=== PATIENT | male | born 1960 ===

== ENCOUNTER → 2021-08-06 09:53 | Outpatient (BNVA) | payer OTHER, SELFPAY | PROVIDERS: PCP Internal Medicine; Visit Provider Psychiatry & Neurology Neurology | DX: R25.2 Cramp and spasm (principal) ==

== ENCOUNTER 2023-06-10 13:14 | Outpatient (AMB) | payer OTHER, SELFPAY ==
--- NOTE | 2023-06-10 13:15 | MHC.OFFVIS ---
Intake Vital Signs 06/10/23 13:23 Height 5 ft 9.5 in Weight 215 lb BMI 31.3 BP 139/67 Blood Pressure Location Rt brachial Position Sitting Pulse 63 Intake Visit Reasons: umbilical Hernia Intake Note: Patient referred by PCP Dr. Kim for 2nd opinion on umbilical hernia. Reports hernia present for yrs. Patient c/o: slightly bigger [facility] [place]/Pelvis: 08-26-22. 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 This has been a longstanding hernia. He was to have surgery at [facility] and discussion was had regarding laparoscopic repair. He does do occasional heavy lifting Patient is otherwise tolerating a diet, having regular bowel habits. Chart was reviewed and patient evaluated [facility] Medical History (Updated 06/10/23 @ 13:21 by SONIA Hicks) Brain aneurysm Dizziness Reactive airway disease Arthritis Hyperlipidemia Aneurysm Surgical History (Updated 06/10/23 @ 14:27 by Curly Aranda MD) No pertinent past surgical history Family History Father Stroke Mother Cancer Social History Household Members: Spouse Alcohol intake: former Year quit: 1987 Patient Tobacco Use Status: Never used Tobacco Substance Use Type: Crack/Cocaine, Former Substance User, Heroin and Marijuana Current occupational status: unemployed Physical Exam Vital Signs: Last Vital Signs Pulse 63 06/10/23 13:23 BP 139/67 06/10/23 13:23 BMI result Body Mass Index 31.3 Chest Other: Chest breath sounds bilaterally, HS 1 in 2 GI Other: Abdomen patient was examined both supine and standing with Valsalva. Bilateral groin exam negative. Genitalia within normal limits. Proximally 3 cm reducible umbilical hernia. Assessment & Plan Assessment & Plan (1) Umbilical hernia: Code(s): K42.9 - Umbilical hernia without obstruction or gangrene Plan I discussed with the patient that his therapeutic options are no surgery to open repair. Because of the small size, patient would be a very good candidate for sedation/MAC anesthesia and local. Risks, benefits, alternatives of procedure of open umbilical hernia repair with mesh would include but not limited to bleeding, infection, recurrence, numbness, pain, scarring. Patient would like to consider his options. Should he wished to proceed with surgery, he will contact the office. All questions answered. Coding Level of Care Code New Pt Level 4 (02806) Diagnoses Umbilical hernia K42.9
[2023-06-10 13:23] VITALS: BP 139/67; PULSE 63; BMI 31.3
== END 2023-06-10 13:40 | disposition home or self-care (01) ==
PROVIDERS: PCP Internal Medicine; Visit Provider Surgery
DX: K42.9 Umbilical hernia without obstruction or gangrene (principal)
CPT/HCPCS: 99204

== ENCOUNTER → 2023-06-10 13:14 | Outpatient (BNVA) | payer OTHER, SELFPAY | PROVIDERS: PCP Internal Medicine; Visit Provider Surgery ==

== ENCOUNTER 2024-01-12 11:29 | Outpatient (AMB) | payer BC, SELFPAY ==
--- NOTE | 2024-01-12 11:52 | A.OFFVIS_ITS ---
Intake Visit Reasons: re-discuss hernia surgery Allergies Penicillins Allergy (Verified 06/10/23 13:20) Swelling HPI Comments Details: Patient was seen by me in May this past year because of symptomatic umbilical hernia. Because of personal issues, he had to delay the surgery. His hernia has now increased in size and become more symptomatic. He would like to have it repaired. Chart was reviewed and patient evaluated [facility] Medical History (Updated 06/10/23 @ 13:21 by SONIA Hicks) Brain aneurysm Dizziness Reactive airway disease Arthritis Hyperlipidemia Aneurysm Surgical History (Updated 06/10/23 @ 14:27 by Curly Aranda MD) No pertinent past surgical history Family History Father Stroke Mother Cancer Social History Household Members: Spouse Alcohol intake: former Year quit: 1987 Patient Tobacco Use Status: Never used Tobacco Substance Use Type: Crack/Cocaine, Former Substance User, Heroin and Marijuana Current occupational status: unemployed Physical Exam Chest Other: Chest breath sounds bilaterally. Regular pulse GI Other: Patient was examined both supine and standing with Valsalva. Abdomen is soft and benign. Bilateral groin exam negative. Patient has a roughly 3 cm incarcerated umbilical hernia Assessment & Plan Assessment & Plan (1) Umbilical hernia: Code(s): K42.9 - Umbilical hernia without obstruction or gangrene Category: Surgical Plan I once again reviewed with the patient the risks, benefits, alternatives of open encourage umbilical hernia repair with mesh which included but not limited to bleeding, infection, recurrence, numbness, pain, scarring, bowel injury and the patient wishes to proceed. All questions answered. Arrangements were made for this. Think the patient would be a good candidate for MAC anesthesia. Coding Level of Care Code Est Pt Level 5 (76564) Diagnoses Umbilical hernia K42.9
== END 2024-01-12 12:05 | disposition home or self-care (01) ==
PROVIDERS: PCP Internal Medicine; Visit Provider Surgery
DX: K42.9 Umbilical hernia without obstruction or gangrene (principal)
CPT/HCPCS: 99214

== ENCOUNTER 2024-03-04 07:32 | Day surgery (SDC) | payer BC, SELFPAY ==
[2024-03-01 13:15] VITALS: BMI 30.8
--- NOTE | 2024-03-03 15:31 | P.HPSUR_ITS ---
Pre-Procedural Eval Section A - 24 Hr Update-Section A only Date of Service: 03/04/24 The patient is an INPATIENT: No Changes since office visit: No Cold of Flu in the past 2 weeks, No New Medical Problems, No Changes in Medication and No Patient answered all questions Section B - Complete if H&P > 30 days Chief Complaint: Umbilical hernia without obstruction or gangrene Allergies: Allergies Allergy/AdvReac Type Severity Reaction Status Date / Time Penicillins Allergy Swelling Verified 06/10/23 13:20 Review of Systems Sugical H&P ROS: Negative: Constitution, Cardiovascular, Respiratory, Neurological, Psychiatric, Hem-Onc, Allergic/Immunologic, Gastrointestinal, Genitourinary, Musculoskeletal, Integumentary, Endocrine and E yes/Ears/Nose/Throat Exam Surgical H&P Exam: Normal: HEENT, Normal: Heart, Normal: Lungs, Normal: Extremities, Normal: Abdomen, Normal: Skin and Normal: Neurological Plan I have reviewed the history and physical and performed a pertinent physical examination on my patient. No changes have occurred unless specified. Time Spent With Patient Time: Total time managing care of this patient today ____ minutes.
[2024-03-04 08:21] VITALS: BP 145/82; PULSE 62; RESP 16; TEMP 36.7; O2SAT 96; BMI 31.2
[2024-03-04] MEDS: Lactated Ringers 1,000 ML 80 ML IVCONT (09:04)
--- NOTE | 2024-03-04 09:05 | P.CONAN_ITS ---
[facility] Active Problems Active Problems: All Active Problems Umbilical hernia (Acute) Cramp in limb (Acute) Reactive airway disease (Acute) Arthritis (Acute) Hyperlipidemia (Acute) Past Medical History Medical History Difficulty swallowing SBO (small bowel obstruction) Tremor Pre-diabetes IBS (irritable bowel syndrome) Elevated cholesterol DDD (degenerative disc disease), cervical DDD (degenerative disc disease), lumbar Benign paroxysmal positional vertigo PFO (patent foramen ovale) Brain aneurysm Dizziness Reactive airway disease Arthritis Hyperlipidemia Family History Family History Father Stroke Mother Cancer Surgical History Surgical History H/O colonoscopy H/O cervical spine surgery Hx of hand surgery Hx of brain surgery History of Problems with Anesthesia: No Social History Social History Household Members: Spouse Are you a primary veterinarian laboratory animal care to a significant other at home: No Do you presently have visiting nurse or other home services: No Alcohol intake: former Year quit: 1987 Patient Tobacco Use Status: Former Tobacco user Tobacco use type: Cigarette Smoked in Last 30 Days: No Use of substances other than those prescribed or required for medical reasons: No Substance Use Type: Crack/Cocaine, Former Substance User, Heroin and Marijuana Substance Use Type Other:: quit 1987 Have you been hit, kicked, punched, or otherwise hurt by someone within the past year? If so, by whom?: No Are you DNR?: No Advance Directives: No Advance Directives Information Provided: No Advance Directives on File: No Recently lost weight without trying: No How much weight loss: Not applicable Eating poorly because of decreased appetite: No Nutrition screen score: 0 Nutrition Risks: No Nutritional Risk Poor oral hygiene: Yes (Missing top left x1, Broken/Chipped teeth throughout) Current occupational status: unemployed Meds Allergies Allergy/AdvReac Type Severity Reaction Status Date / Time Penicillins Allergy Severe Swelling Verified 03/04/24 08:06 Active Medications: Current Medications Lactated Ringer's (Lr) 1,000 mls @ 80 mls/hr IVCONT .[id number] PAULO Last Admin: 03/04/24 09:04 Dose: 80 mls/hr Home Medications ?Medication ?Instructions ?Recorded ?Confirmed ?Last Taken ?Type acetaminophen 300 mg-codeine 30 mg 1 tab PO BID PRN Pain 08/05/21 03/01/24 Unknown History tablet tizanidine 2 mg tablet 2 mg PO TID PRN muscle spasms 08/05/21 03/04/24 Unknown History albuterol sulfate 90 mcg/actuation 2 puff inhalation Q6H PRN 03/01/24 03/04/24 Unknown History aerosol inhaler (Ventolin HFA) Shortness Of Breath Or Wheezing meloxicam 15 mg tablet 15 mg PO DAILY PRN severe pain 03/01/24 03/04/24 Unknown History pregabalin 50 mg capsule 50 - 100 mg PO BEDTIME 03/01/24 03/04/24 03/03/24 History Exam Height,Weight and Vital Signs: Height 5 ft 10 in Weight 98.52 kg Last Vital Signs Temp 98.1 F 03/04/24 08:21 Pulse 62 03/04/24 08:21 Resp 16 03/04/24 08:21 BP 145/82 H 03/04/24 08:21 Pulse Ox 96 03/04/24 08:21 O2 Del Method Room Air 03/04/24 08:21 Airway Mallampati Class: III TM Dist: >3cm Neck ROM: Full Loose/Missing/Broken Teeth: No Heart: RRR Lungs: CTA Assessment and Plan Assessment Anesthesia Assessment: Anesthesia Plan Discussed and Chart Reviewed Final Anesthetic Review History of Problems with Anesthesia: No NPO: Yes ASA Class: II Final Preanesthetic Review: Meds/Allgs Chart Reviewed, Consent Obtained/Reviewed and Anes Risks/Benef Reviewed Patient Risk: Low Procedure Risk: Low Anesthetic Plan Anesthetic Plan: GA Disposition: Standard PACU
[2024-03-04 10:12] VITALS: BP 128/72; PULSE 66; RESP 18; TEMP 36.3; O2SAT 97
[2024-03-04 10:15] VITALS: BP 115/67; PULSE 61; RESP 18; O2SAT 97
--- NOTE | 2024-03-04 10:17 | W.PM.OPN ---
Operative Note Operative Note Date of Service: 03/04/24 Narrative: Preoperative diagnosis: [] Incarcerated symptomatic umbilical hernia Postop diagnosis: [] The same Procedure [] open umbilical herniorrhaphy with Bard mesh Surgeon: [] Manoj Videogame Designer: [] Chas Type of Anesthesia: [] General Indication for surgery: [] Corpulent abdomen. Roughly 3 cm incarcerated umbilical hernia with omental contents Findings: [] Patient brought to the operating room, placed on operative table supine position, after an adequate level of general anesthesia was induced, the patient's abdomen was prepped and draped in usual sterile fashion . Using a small infraumbilical curvilinear incision, this carried down through skin, subcutaneous tissue, where hernia sac was identified and from the posterior aspect of the umbilicus. This was then dissected down the fascia and sac opened. Incarcerated omentum and sac were amputated using Bovie. Fascia margins were circumferentially cleared. Inappropriately sized Bard mesh was placed in the defect and the superficial layer of the mesh was circumferentially sutured to the surrounding fascia using interrupted 0 Ethibond suture. At completion of procedure, mesh was in very good position with no gaps or tension. Wound was irrigated, secured hemostasis, and closed in the following manner; posterior aspect of the umbilicus was tacked to the wound floor using interrupted 3-0 Vicryl suture. Skin was closed using interrupted inverted dermal 3-0 Vicryl sutures followed by Steri-Strips and sterile dressings. Wound was infiltrated at the beginning at the end of the case with 0.5% Marcaine/1% lidocaine. Sponge, needle, and instrument counts were reported correct. Patient tolerated the procedure well and emerged from anesthesia stable condition. EBL minimal
[2024-03-04 10:20] VITALS: BP 112/68; PULSE 61; RESP 16; O2SAT 97
[2024-03-04 10:25] VITALS: BP 111/69; PULSE 61; RESP 16; O2SAT 95
== END 2024-03-04 11:12 | disposition home or self-care (01) ==
PROVIDERS: PCP Internal Medicine; Visit Provider Surgery
PROC: (CPT 49592; principal; 2024-03-04 09:50)
DX: K42.0 Umbilical hernia with obstruction, without gangrene (principal); E65 Localized adiposity; E78.5 Hyperlipidemia, unspecified; R42 Dizziness and giddiness; J45.909 Unspecified asthma, uncomplicated; Z79.899 Other long term (current) drug therapy; Z88.0 Allergy status to penicillin; Z87.891 Personal history of nicotine dependence
CPT/HCPCS: 49592; 88304; C1781; J0736; J1100; J2003; J2250; J2405; J2704; J2795; J3010

== ENCOUNTER → 2024-03-04 07:32 | Outpatient (BNV) | payer BC, SELFPAY | PROVIDERS: PCP Internal Medicine; Visit Provider Surgery | DX: K42.9 Umbilical hernia without obstruction or gangrene (principal) | CPT/HCPCS: 49594 ==

== ENCOUNTER 2024-03-15 09:50 | Outpatient (AMB) | payer BC, SELFPAY ==
--- NOTE | 2024-03-15 09:51 | A.OFFVIS_ITS ---
Intake Visit Reasons: S/P umbilical hernia w/mesh Intake Note: Patient here s/p open umbilical herniorrhaphy with Bard mesh. Reports incision healing well. Patient c/o: feels like umbilical hernia grew back. Umbilical area feels tender to touch. Would like to have rx pain meds refilled. Surgery: 03-04-2024 Hydrogenation Operator Required: No Accompanied by: Self / Same As Patient Allergies Penicillins Allergy (Severe, Verified 03/15/24 09:52) Swelling HPI Comments Details: Patient presents for follow-up. Some incisional discomfort but otherwise doing well. Tolerating a diet. Having regular bowel habits. Increased his activity level. [facility] Medical History Difficulty swallowing SBO (small bowel obstruction) Tremor Pre-diabetes IBS (irritable bowel syndrome) Elevated cholesterol DDD (degenerative disc disease), cervical DDD (degenerative disc disease), lumbar Benign paroxysmal positional vertigo PFO (patent foramen ovale) Brain aneurysm Dizziness Reactive airway disease Arthritis Hyperlipidemia Surgical History (Updated 03/15/24 @ 10:09 by Curly Aranda MD) Umbilical hernia (03/04/24) H/O colonoscopy H/O cervical spine surgery Hx of hand surgery Hx of brain surgery Family History Father Stroke Mother Cancer Social History Household Members: Spouse Are you a primary intensive care anaesthetist to a significant other at home: No Do you presently have visiting nurse or other home services: No Alcohol intake: former Year quit: 1987 Patient Tobacco Use Status: Former Tobacco user Tobacco use type: Cigarette Substance Use Type: Crack/Cocaine, Former Substance User, Heroin and Marijuana Current occupational status: unemployed Physical Exam GI Other: Abdomen is soft, benign. Incision clean dry and intact healing well Assessment & Plan Assessment & Plan (1) Status post umbilical hernia repair, follow-up exam: Code(s): Z09 - Encounter for follow-up examination after completed treatment for conditio ns other than malignant neoplasm Category: Surgical Plan Patient was been given local wound instructions including avoiding strenuous activities for next few weeks time and otherwise follow-up p.r.n.. All questions answered. He would like a renewal of his analgesics Coding Level of Care Code Global (85652) Diagnoses Status post umbilical hernia repair, follow-up exam Z09
== END 2024-03-15 10:09 | disposition home or self-care (01) ==
PROVIDERS: PCP Internal Medicine; Visit Provider Surgery
DX: K42.9 Umbilical hernia without obstruction or gangrene (principal); Z09 Encounter for follow-up examination after completed treatment for conditions other than malignant neoplasm
CPT/HCPCS: 99212

== ENCOUNTER → 2024-03-15 09:50 | Outpatient (BNVA) | payer BC, SELFPAY | PROVIDERS: PCP Internal Medicine; Visit Provider Surgery ==

== ENCOUNTER 2024-12-30 10:37 | Outpatient (AMB) | payer BC, SELFPAY ==
[2024-12-30 11:27] VITALS: BMI 28.7
--- NOTE | 2024-12-30 11:27 | HO.SPINEOV ---
Vital Signs 12/30/24 11:27 Height 5 ft 10 in Weight 200 lb BMI 28.7 Intake Visit Reasons: LBP Intake Note: Mr. Gonzalez is here today c/o low back pain. Hanging Flags Decorator Required: No Allergies Penicillins Allergy (Severe, Verified 12/30/24 11:27) Swelling Physical Exam Vital Signs: BMI result Body Mass Index 28.7 Assessment & Plan Assessment & Plan (1) Lumbar disc herniation with radiculopathy: Code(s): M51.16 - Intervertebral disc disorders with radiculopathy, lumbar region Category: Medical Plan Dear colleague Thank you for referring Andrew Gonzalez to the office today with a chief complaint of right leg pain. HPI: This 64-year-old male has a classic history for a lumbar disc herniation. Mid September, he was getting out of his plain chair, twisted and felt an immediate pain in the right side of his back radiating down his right leg. First 24 hours were very painful with a burning sensation in his right foot and right hip. The symptoms have improved somewhat over time but he still has a fair amount of discomfort with electric shock down his right leg into the 2 biggest toes. Touching of the dorsum of his foot is very painful. He also noted a mild drop foot. He saw Dr. Hooper, who recommended a lumbar microdiskectomy. In addition, to the lumbar radiculopathy he is having right knee pathology and arthritis of his right hip for which he is seeing an orthopedic surgeon. He had a meniscal tear repaired and most likely needs to have it redone. The following conservative treatment options were tried without success antiinflammatories, tylenol, physician guided home exercise plan PMH: Cerebral aneurysm clipping in the 80s which prevent undergoing an MRI. Umbilical hernia repair, right meniscus repair Medications: Vicodin, tramadol, tizanidine p.r.n. Allergies: Penicillin Social history: . Nonsmoker Physical Exam: Pleasant male. Straight leg raise is positive on the right side with running pain down his right leg. There is a grade 4 +out of 5 weakness of the dorsiflexors and extensor hallucis longus. There is hypersensitivity of the dorsum of his right foot. No pathological reflexes. Radiological Studies: A CT scan of the lumbar spine at [facility] shows a small right L4-5 disc herniation. The herniation is best seen on a lateral image. The herniation compresses the right L5 nerve root. The radiology report is inaccurate as it does not describe this abnormality that was seen by another orthopedic spine surgeon and myself. Impression/Plan: This patient is suffering from a right L5 radiculopathy with neurological deficits. He is currently 4 months after the initial incident that caused the symptoms. His symptoms have plateaued and therefore I think he is a good surgical candidate for a right L4-5 microdiskectomy. I made him aware that a surgical decompression may not resolve the weakness or the severe hyperesthesia on the dorsum of his foot as this may related to nerve damage. The surgery would be to address the radiating pain down his leg. He is going to talk to his orthopedic surgeon to confirm that the lumbar spine should be addressed 1st before addressing the knee. Relief of the leg pain will give him the maximum potential for rehab of his knee. He will call my office if he wants to proceed. Thank you for allowing me to participate in your patients care. total time spent was 50 minutes in counseling ,coordination of plan, personal review of imaging, surgical decision making and subsequent plan Wilbert Eisenberg MD, PhD Spine Fellowship Trained Neurosurgeon Director, [facility] Coding Level of Care Code New Pt Level 4 (67853) Diagnoses Lumbar disc herniation with radiculopathy M51.16
--- OUTSIDE RECORDS SUMMARY | 2024-12-30 12:02 | XMS_ITS | Patient Health Record ---
[facility] Address [address] [place] [address] Care Team Providers Care Civil Structural Engineer Name Role Phone Julio FELDMAN, Vikram Primary Care Provider Mandy Denny Unavailable [phone] Allergies Allergen (clinical drug ingredient) Drug/Non Drug Allergy documented on EMR Reaction Allergy Type Onset Date Status Penicillin swelling Drug Allergy Active Reason For Referral No Information Medications Medication SIG (Take, Route, Frequency, Duration) Notes Start Date End Date Status Tylenol Active Muscle Relief Active Social History Tobacco use other than smoking: Question Answer Notes Are you an other tobacco user? No Section Notes: tennis, golf, walk tennis, golf, walk Problems Problem Type SNOMED Code ICD Code Onset Dates Problem Status W/U Status Risk Notes Problem Acquired hammer toe of left foot ([id number] 9103) Other hammer toe(s) (acquired), left foot (M20.42) Active confirmed Problem PlantarFlexion o f metatarsal of left foot (M21.6X2) Active confirmed Plan Of Treatment Pending Test Test Name Order Date 25243- Debride <25 sq cm 01/16/2014 Insurance Providers Payer Name Payer Address Payer Phone Subscriber Number Group Number Insured Name Patient Relationship to Insured Coverage Start Date Coverage End Date [facility] [address] [facility] [id number] [phone] [id number] Kathy Gonzalez Spouse - patient is the spouse of the insured Medical (General) History Medical History History ICD Code asthma Epilepsy Psoriasis/eczema Chicken pox Surgical History Surgery Date(Month/Year) Aneurysm 04/30/1987 Hospitalization History Reason Date(Month/Year) colonoscopy 10/13
--- OUTSIDE RECORDS SUMMARY | 2024-12-30 12:02 | XMS_ITS | Encounter Summary ---
Author Organization [facility] Address [address] [place] [address] [place] [phone] Phone Care Team Providers Care Seasoning Sprayer Name Role Phone Unknown, Unknown Primary Care Provider Kwaem castillo Encounter Details Date Type Department Care Team (Late st Contact Info) Description 09/29/2019 Transcribe Orders Virtual Department [address] [place] [id number] Donell Eddy MD [address] [place] [id number] Social History Tobacco Use Types Packs/Day Years Used Date Smoking Tobacco: Never Assessed Sex and Gender Information Value Date Recorded Sex Assigned at Not on file Legal Sex Male 4:17 PM EST Gender Identity Not on file Sexual Orientation Not on file documented as of this encounter Plan of Treatment Not on file documented as of this encounter Visit Diagnoses Not on filedocumented in this encounter Additional Health Concerns Infection Onset Date Last Indicated Resolved Time CoV-Exposed Comment:Recent close contact 09/29/2019 09/29/2019 10/13/2019 1:27 AM EDT documented as of this encounter Care Teams Seasoning Sprayer Relationship Specialty Start Date End Date Unknown, Unknown, PCP - General 09/29/19 documented as of this encounter Additional Source Comments The information contained in this document represents components of the legal health record. It is not the complete legal health record.[facility]
== END 2024-12-30 12:00 | disposition home or self-care (01) ==
LOC: HO.HNS 10:37
PROVIDERS: PCP Internal Medicine; Referring Provider Physician Assistant; Visit Provider Neurological Surgery
DX: M51.16 Intervertebral disc disorders with radiculopathy, lumbar region (principal)
CPT/HCPCS: 99204